=== PATIENT | male | born 1985 | race Caucasian/White ===

== ENCOUNTER 2023-07-06 07:17 | Emergency (ER) | payer OTHER ==
[2023-07-06 07:50] LABS: BASOPHILS ABSOLUTE AUTO 0.02 10^3/uL (0.00-0.10); BASOPHILS PERCENT AUTO 0.4 % (0.0-1.0); EOSINOPHILS ABSOLUTE AUTO 0.07 10^3/uL (0.10-0.30); EOSINOPHILS PERCENT AUTO 1.3 % (1.0-3.0); HEMATOCRIT 45.3 % (40.0-52.0); HEMOGLOBIN 15.3 g/dL (13.0-17.0); LYMPHOCYTES PERCENT AUTO 26.8 % (20.0-40.0); MEAN CORPUSCULAR HEMOGLOBIN 31.4 pg (27.0-31.0); MEAN CORPUSCULAR HGB CONC 33.8 g/dL (32.0-36.0); MEAN CORPUSCULAR VOLUME 92.8 fL (82.0-92.0); MEAN PLATELET VOLUME 8.9 fL (7.4-10.4); MONOCYTES ABSOLUTE AUTO 0.47 10^3/uL (0.10-0.80); MONOCYTES PERCENT AUTO 8.4 % (2.0-8.0); NEUTROPHILS ABSOLUTE AUTO 3.53 10^3/uL (2.50-7.00); NEUTROPHILS PERCENT AUTO 63.1 % (50.0-70.0); PLATELET COUNT,PLT 217 10^3/uL (150-400); RED BLOOD CELL COUNT 4.88 10^6/uL (4.50-6.00); RED CELL DISTRIBUTION WIDTH 13.1 % (11.5-14.5); WHITE BLOOD CELL COUNT,WBC 5.59 10^3/uL (5.00-10.00)
[2023-07-06 08:09] LABS: ALANINE AMINOTRANSFERASE,ALT 47 U/L (14-63); ALKALINE PHOSPHATASE 56 U/L (46-116); ANION GAP 16.2 mmol/L (5-15); ASPARTATE AMNIOTRANSFERASE,AST 37 U/L (15-37); BILIRUBIN TOTAL 0.7 mg/dL (0.2-1.0); BLOOD UREA NITROGEN,BUN 13 mg/dL (7-18); CALCIUM 8.8 mg/dL (8.7-10.3); CARBON DIOXIDE,CO2 26.3 mmol/L (21.0-32.0); CHLORIDE,CL 102 mmol/L (98-107); CREATININE 1.12 mg/dL (0.51-1.17); EST CRCL DRUG DOSING (CG) 100.08 mL/min; GLUCOSE RANDOM 107 mg/dL (70-140); POTASSIUM,K 3.5 mmol/L (3.5-5.1); PROTEIN TOTAL,TP 7.4 g/dL (6.4-8.2); SODIUM,NA 141 mmol/L (136-145)
[2023-07-06 08:10] LABS: ESTIMATED GFR 87 mL/min (>=60)
[2023-07-06] MEDS: Aspirin 81 MG Tab.Chew PO SCH (08:16)
[2023-07-06 08:20] LABS: PROTHROMBIN TIME 10.5 SEC (9.3-12.2); PTT,PARTIAL THROMBOPLSTIN TIME 25.4 SEC (23.3-34.9)
[2023-07-06] MEDS: Aspirin 81 MG Tab.EC PO ONE (13:38)
== END 2023-07-06 08:55 | disposition home or self-care (01) ==
LOC: KA.ED 07:17
DX: R07.9 Chest pain, unspecified (principal); Z88.1 Allergy status to other antibiotic agents; Z88.0 Allergy status to penicillin
CPT/HCPCS: 36415; 71045; 80053; 84484; 85025; 85610; 85730; 93005; 99285; A9270-GY